=== PATIENT | male | born 1985 | race Caucasian/White ===

== ENCOUNTER 2022-03-09 15:42 | Emergency (ER) | payer OTHER, SELFPAY ==
[2022-03-09 15:51] VITALS: BP 141/81; PULSE 75; RESP 14; TEMP 37.6; O2SAT 99
--- NOTE | 2022-03-09 16:05 | ED.UPPEXIN ---
HPI - Extremity Injury (Upper) General Chief Complaint: Extremity Injury, Upper Stated Complaint: right elbow pain Source: patient Mode of arrival: ambulatory Limitations: no limitations Related Data Allergies Allergy/AdvReac Type Severity Reaction Status Date / Time No Known Allergies Allergy Verified 03/09/22 15:56 PMFSH Comments At the time of my signature, I reviewed and agree with the nursing past medical, surgical, social, and family history. There is no relevant family history pertinent to the patient complaint. Course Course Emergency Course: Portions of this record may have been created with voice recognition software. Level of Care: Express Care Visit Vital Signs Vital signs: Vital Signs Temperature 37.6 C H 03/09/22 15:51 Pulse Rate 75 03/09/22 15:51 Respiratory Rate 14 03/09/22 15:51 Blood Pressure 141/81 H 03/09/22 15:51 Pulse Oximetry 99 03/09/22 15:51 Oxygen Delivery Room Air 03/09/22 15:51 Temperature 37.6 C H 03/09/22 15:51 Pulse Rate 75 03/09/22 15:51 Respiratory Rate 14 03/09/22 15:51 Blood Pressure 141/81 H 03/09/22 15:51 Pulse Oximetry 99 03/09/22 15:51 Oxygen Delivery Room Air 03/09/22 15:51 Vital signs reviewed Discharge Plan Discharge Clinical Impression: Bursitis due to bacterial infection Patient Disposition: Home, Self-Care Condition: Stable Instructions: Antibiotic Form, Elbow Bursitis (ED) Additional Instructions: Wear Hao wrap as discussed Apply ice pack and keep elevated cephalexin as prescribed Tylenol/motrin for pain/fever. Prescriptions: New cephalexin 500 mg capsule 500 mg PO Q8H 7 Days Qty: 21 0RF Follow-up/Referrals: PHYSICIAN NOT ON STAFF,NONSTAFF [Primary Care Provider] - Time of Disposition: 16:09 Quality NIHSS Nursing Documentation ED NIHSS nursing documentation: reviewed/agree
--- NOTE | 2022-03-10 10:29 | ED.UPPEXIN ---
HPI - Extremity Injury (Upper) General Chief Complaint: Extremity Injury, Upper Stated Complaint: right elbow pain Time Seen by Provider: 03/09/22 16:00 Source: patient Mode of arrival: ambulatory Limitations: no limitations History of Present Illness HPI narrative: Mr. Cain is a 37-year-old male patient presenting to the clinic today with complaints of right elbow pain and swelling. He bumped it last week and a sore appeared to the tip of the elbow and he attempted to drain it with a needle. He reports that the redness and swelling increased after trying to drain this himself. Related Data Allergies Allergy/AdvReac Type Severity Reaction Status Date / Time No Known Allergies Allergy Verified 03/09/22 15:56 Review of Systems Review of Systems: Pertinent positives per HPI. Patient denies any rash, headache, visual changes, dizziness, cough, runny nose, sore throat, shortness of breath, chest pain, palpitations, nausea, vomiting, diarrhea, constipation, abdominal pain, or any urinary issues. PMFSH Comments At the time of my signature, I reviewed and agree with the nursing past medical, surgical, social, and family history. There is no relevant family history pertinent to the patient complaint. Exam Narrative: General: Well-developed, well nourished, in no apparent distress Head: Normocephalic, atraumatic. Cardio: Regular rate and rhythm, s1 and s2 normal, no murmur appreciated. Resp: Clear to auscultation bilaterally, no rhonchi, rales, wheezing or rubs. Musculoskeletal: No deformity, tender to palpation over the elbow with redness and swelling with fluctuance of fluid palpable, skin is mildly erythemic. Pustule area noted to the skin with mild induration, area of swelling and redness was a size of a tennis ball approximately, grossly normal range of motion, muscle strength strong and equal, peripheral pulse strong, no cyanosis, normal gait and station Course Course Emergency Course: Portions of this record may have been created with voice recognition software. Level of Care: Express Care Visit Vital Signs Vital signs: Vital Signs Temperature 37.6 C H 03/09/22 15:51 Pulse Rate 75 03/09/22 15:51 Respiratory Rate 14 03/09/22 15:51 Blood Pressure 141/81 H 03/09/22 15:51 Pulse Oximetry 99 03/09/22 15:51 Oxygen Delivery Room Air 06/08/22 15:51 Temperature 37.6 C H 03/09/22 15:51 Pulse Rate 75 03/09/22 15:51 Respiratory Rate 14 03/09/22 15:51 Blood Pressure 141/81 H 03/09/22 15:51 Pulse Oximetry 99 03/09/22 15:51 Oxygen Delivery Room Air 03/09/22 15:51 Vital signs reviewed Procedures Joint Aspiration/Injection Joint Asp./Inject. 1: Joint Aspiration Date: 03/09/22 Side of body: right Joint Aspirated: elbow (Elbow bursa) Skin Prep: Chlorhexidine Needle Size Used: 18G Fluid Obtained: viscous Total fluid obtained (mL): 2 Patient Tolerated Procedure: well Complications: none Additional Comments: Band-Aid, TADEO, and Hao wrap applied after procedure MDM - Extremity Injury (Upper) MDM Narrative Medical decision making narrative: At the time of visit patient is resting comfortably on the exam table. He gave verbal consent for drainage of the bursitis. 2 mL of cloudy bursa withdrew and this improved patient's pain. Hao wrap was applied,I will go ahead and give a course of antibiotics and have him follow-up with his PCP in 3 to 5 days if symptoms persist Differential Diagnosis Differential diagnosis: Likely other (Infected bursitis, bursitis, elbow fracture, abscess, cellulitis) Discharge Plan Discharge Clinical Impression: Bursitis due to bacterial infection Patient Disposition: Home, Self-Care Condition: Stable Instructions: Antibiotic Form, Elbow Bursitis (ED) Additional Instructions: Wear Hao wrap as discussed Apply ice pack and keep elevated cephalexin as prescribed Tylenol/motrin for p
== END 2022-03-09 16:12 | disposition home or self-care (01) ==
PROVIDERS: Emergency Provider Nurse Practitioner Family
DX: M71.121 Other infective bursitis, right elbow (principal); B96.89 Other specified bacterial agents as the cause of diseases classified elsewhere
CPT/HCPCS: 20605; 99213; G0463

== ENCOUNTER 2024-03-26 15:14 | Emergency (ER) | payer OTHER, SELFPAY ==
[2024-03-26 15:30] VITALS: BP 141/87; PULSE 87; RESP 18; TEMP 36.7; O2SAT 99
--- NOTE | 2024-03-26 15:58 | ED.EAR ---
HPI - Ear Problem General Chief complaint: Ear Stated complaint: ear pain Time Seen by Provider: 03/26/24 15:40 Source: patient, RN notes reviewed and old records reviewed Mode of arrival: ambulatory Limitations: no limitations History of Present Illness HPI Narrative: 39 year old male who presents to [facility] care with complaints of right ear pain and decreased hearing since Monday 4 days ago. [place] He states that he has used some OTC ear gtts to his right ear with no improvement in symptoms.Patient denies any fevers, chills or any sweats, denies any sore throat or cough. MD Complaint: ear pain Location: right ear Duration: constant Severity: mild Discharge from ear: Reports no Treatment prior to arrival: eardrops (OTC) Related Data Allergies Allergy/AdvReac Type Severity Reaction Status Date / Time No Known Allergies Allergy Verified 03/26/24 15:39 Review of Systems Review of Systems: CONSTITUTIONAL: Denies malaise, chills, sweats, or fever. EYES: Denies visual changes, redness, or discharge. ENT: Reports no rhinorrhea, congestion, sinus pain,positive for tight ear otalgia and denies any sore throat. CARDIOVASCULAR: Denies chest pain, palpitations, or edema. RESPIRATORY: Reports no cough.? Denies dyspnea. GASTROINTESTINAL: Denies abdominal pain, nausea, vomiting, diarrhea SKIN: Denies rash or itching. MUSCULOSKELETAL: Denies myalgia. NEUROLOGIC: Denies headache. All systems reviewed & are unremarkable except as noted in HPI and below PMFSH Past Medical History Medical History No pertinent past medical history Surgical History Surgical History No history of previous surgery Social History Social History Smoking status: Current every day smoker Tobacco type: e-cigarettes/vaping Alcohol intake: current Alcohol use details: social Substance use type: does not use Gender identity (if verbalized by the patient): Male Comments At time of signature, agree with nursing past medical, surgical, social and family history. There is no relevant family history pertinent to the presenting complaint Exam Narrative: GENERAL: Well-appearing, well-nourished, and in no acute distress. HEAD: Normocephalic EYES: PERRLA, conjunctivae clear ENT: Nares clear, turbinates edematous and erythematous, clear discharge. Mucous membranes moistRight TM red and bulging with ear canal red and excoriated noted purulent drainage in ear canal. Left. TM pearly ku with dull light reflex ; no tragal tenderness. Oropharynx erythematous without lesions. Tonsils not enlarged and without exudate, no drooling, no hoarseness, no trismus, uvula midline. NECK: Supple. No lymphadenopathy CHEST: Clear to auscultation, breath sounds equal. No wheezing, rhonchi, rales, or stridor. No respiratory distress, speaks in full sentences.no cough noted SAO2 99% on room air HEART: Regular rate and rhythm. No murmur heard. SKIN: Warm, dry, no rash. NEURO: Alert and oriented x3. PSYCH: Normal mood and affect Course Course Emergency Course: Patient is aware of diagnosis, understands and agrees to treatment plan.? Anticipatory guidance given.? Patient agrees to follow-up as directed and is aware of reasons to seek care at the emergency department. Portions of this record may have been created with voice recognition software Level of Care: Express Care Visit Vital Signs Vital signs: Vital Signs Temperature 36.7 C 03/26/24 15:30 Pulse Rate 87 03/26/24 15:30 Respiratory Rate 18 03/26/24 15:30 Blood Pressure 141/87 H 03/26/24 15:30 Pulse Oximetry 99 03/26/24 15:30 Temperature 36.7 C 03/26/24 15:30 Pulse Rate 87 03/26/24 15:30 Respiratory Rate 18 03/26/24 15:
== END 2024-03-26 16:08 | disposition home or self-care (01) ==
PROVIDERS: Emergency Provider Registered Nurse
DX: H66.91 Otitis media, unspecified, right ear (principal); H60.91 Unspecified otitis externa, right ear; F17.290 Nicotine dependence, other tobacco product, uncomplicated
CPT/HCPCS: 99213; G0463